=== PATIENT | female | born 1980 | race African-American/Black ===

== ENCOUNTER 2019-02-09 10:24 | Emergency (ER) | payer SELFPAY ==
[~2019-02-09] VITALS: Ht 175.3 cm; Wt 79.4 kg
[2019-02-09 10:33] VITALS: BP 118/69
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
[2019-02-09] MEDS ORDERED: Morphine Sulfate 2mg/ml Inj(IV/IM USE ONLY) IVP ONE (11:00)
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
--- NOTE | 2019-02-09 11:37 | Diagnostic Imaging Report ---
EXAM: CT Head Without Intravenous Contrast CLINICAL HISTORY: PAIN TECHNIQUE: Axial computed tomography images of the head/brain without intravenous contrast. CTDI is 70.38 mGy and DLP is 1358.27 mGy-cm. One or more of the following dose reduction techniques were used: automated exposure control, adjustment of the mA and/or kV according to patient size, use of iterative reconstruction technique. COMPARISON: No relevant prior studies available. FINDINGS: Brain: No hemorrhage. No edema. The left choroid fissure cyst. Ventricles: No ventriculomegaly. Bones/joints: No acute fracture. Soft tissues: Unremarkable. Sinuses: No acute sinusitis. Mastoid air cells: No mastoid effusion. IMPRESSION: No acute intracranial process.
--- NOTE | 2019-02-09 11:38 | Diagnostic Imaging Report ---
EXAM: CT Cervical Spine Without Intravenous Contrast CLINICAL HISTORY: PAIN TECHNIQUE: Axial computed tomography images of the cervical spine without intravenous contrast. CTDI is 15.77 mGy and DLP is 327.15 mGy-cm. One or more of the following dose reduction techniques were used: automated exposure control, adjustment of the mA and/or kV according to patient size, use of iterative reconstruction technique. COMPARISON: No relevant prior studies available. FINDINGS: Vertebrae: No fracture or malalignment. Degenerative changes. Discs/spinal canal/neural foramina: Degenerative changes. Soft tissues: Unremarkable. IMPRESSION: No fracture or malalignment.
--- NOTE | 2019-02-09 12:16 | NUR ---
ED Nurse Note: pt refused medication x3. ERMD made aware.
--- NOTE | 2019-02-09 12:33 | NUR ---
ED Nurse Note: per ERMD, pt is ok to ambulate and C-collar can be removed.
--- NOTE | 2019-02-09 12:34 | NUR ---
ED Nurse Note: pt ambulated to bathroom with steady gait.
[2019-02-09] MEDS ORDERED: Acetaminophen 500mg (ES) tab ORAL ONE (12:45)
[2019-02-09] MEDS ORDERED: ACETAMINOPHEN500 M3 ORAL (12:49)
[2019-02-09] MEDS ORDERED: CYCLOBENZAPRINE10 MG ORAL (12:49)
[2019-02-09] MEDS ORDERED: IBUPROFEN600 MG ORAL (12:49)
[2019-02-09 13:20] VITALS: BP 120/69
--- NOTE | 2019-02-09 13:58 | Diagnostic Imaging Report ---
EXAM: XR Chest, 1 View CLINICAL HISTORY: PAIN TECHNIQUE: Frontal view of the chest. COMPARISON: No relevant prior studies available. FINDINGS: Lungs: Unremarkable. The lungs appear clear. No focal consolidation. Pleural space: Unremarkable. The costophrenic angles are sharp. No visible pneumothorax. Heart: Unremarkable. Cardiac silhouette is magnified by portable AP technique. Mediastinum: Unremarkable. Bones/joints: Unremarkable. Tubes, lines and devices: Telemetry leads overlie the thorax. IMPRESSION: No acute findings.
== END 2019-02-09 13:15 | disposition home or self-care (01) ==
LOC: EMR 13:00
DX: S16.1XXA Strain of muscle, fascia and tendon at neck level, initial encounter (principal); R07.9 Chest pain, unspecified; M25.512 Pain in left shoulder; T14.8XXA Other injury of unspecified body region, initial encounter; V43.52XA Car driver injured in collision with other type car in traffic accident, initial encounter; Y92.410 Unspecified street and highway as the place of occurrence of the external cause
CPT/HCPCS: 70450; 71045; 72125; 99284